=== PATIENT | female | born 1995 | race Caucasian/White ===

== ENCOUNTER 2019-08-01 15:51 | Emergency (ER) | payer MEDICAID ==
--- NOTE | 2019-08-01 16:17 | ER Document Report ---
ED Medical Screen (RME) - General Chief Complaint: High Blood Pressure Stated Complaint: HIGH BLOOD PRESSURE/14 WEEKS Time Seen by Provider: 08/01/19 16:09 Mode of Arrival: Ambulatory Information source: Patient Notes: 23-year-old female presented to ED for complaint of elevated blood pressure at the primary care doctor's office. She states they told her her blood pressure was 130/90 and since she is 14 weeks she needs to come right to the emergency room. Her blood pressure in the emergency room was 117/81. She is 3 para 1 with blood type of O+. She states she has had a lot of swelling to her hands and feet times a month and spots in front of her eyes times a week. She states she did have preeclampsia with her first child as well as gestational diabetes. She states she did have a miscarriage in April. She does smoke 3 cigarettes a day does not drink or do any illicit drugs. Patient is alert oriented respirations regular and unlabored speaking in full sentences. Patient states she is having no discomfort at this time. She is very concerned about the swelling to the hands and feet and that they told her she had protein and ketones in her urine at the doctor's office so her she and her decided they would go come right over to the emergency room now. I have greeted and performed a rapid initial assessment of this patient. A co mprehensive ED assessment and evaluation of the patient, analysis of test results and completion of medical decision making process will be conducted by an additional ED providers. - Related Data Allergies/Adverse Reactions: No Known Allergies Allergy (Unverified 08/01/19 16:04) Past Medical History - Social History Frequency of alcohol use: None Drug Abuse: None Physical Exam - Vital signs Vitals: Temp Pulse Resp BP Pulse Ox 98.4 F 96 18 117/81 100 08/01/19 16:04 08/01/19 16:04 08/01/19 16:04 08/01/19 16:04 08/01/19 16:04 Course - Vital Signs Vital signs: Temp Pulse Resp BP Pulse Ox 98.4 F 96 18 117/81 100 08/01/19 16:04 08/01/19 16:04 08/01/19 16:04 08/01/19 16:04 08/01/19 16:04
[2019-08-01 17:11] LABS: ABSOLUTE MONOCYTES (AUTO) 0.9 10^3/uL (0.1-1.4); ABSOLUTE NEUT (AUTO) 9.4 10^3/uL (1.7-8.2); BASOPHILS % (AUTO) 0.1 % (0-2); EOSINOPHILS % (AUTO) 0.3 % (0-6); HEMATOCRIT 38.6 % (36.0-47.0); HEMOGLOBIN 12.9 g/dL (12.0-15.5); LYMPHOCYTES % (AUTO) 22.5 % (13-45); MEAN CORPUSCULAR HGB CONC 33.3 g/dL (32.0-36.0); MEAN CORPUSCULAR VOLUME 84 fl (80-97); PLATELET COUNT 342 10^3/uL (150-450); RED CELL DISTRIBUTION WIDTH 13.7 % (11.5-14.0); SEGMENTED NEUTROPHILS % (AUTO) 70.1 % (42-78); TOTAL CELLS COUNTED % (AUTO) 100 %; WHITE BLOOD COUNT 13.4 10^3/uL (4.0-10.5)
[2019-08-01 17:24] LABS: ALBUMIN 4.6 g/dL (3.5-5.0); ALKALINE PHOSPHATASE 63 U/L (38-126); ANION GAP 11 (5-19); ASPARTATE AMINO TRANSFERASE 20 U/L (14-36); BILIRUBIN,TOTAL 0.5 mg/dL (0.2-1.3); BLOOD UREA NITROGEN 5 mg/dL (7-20); CALCIUM 9.6 mg/dL (8.4-10.2); CARBON DIOXIDE 23 mmol/L (22-30); CHLORIDE 103 mmol/L (98-107); GLUCOSE 90 mg/dL (75-110); TOTAL PROTEIN 8.2 g/dL (6.3-8.2)
[2019-08-01 17:53] LABS: APPEARANCE,URINE CLOUDY; BILIRUBIN,URINE NEGATIVE (NEGATIVE); COLOR,URINE YELLOW; GLUCOSE, URINE NEGATIVE (NEGATIVE); KETONES,URINE 80 mg/dL (NEGATIVE); LEUKOCYTE ESTERASE,URINE LARGE (NEGATIVE); NITRITE,URINE NEGATIVE (NEGATIVE); PROTEIN,URINE NEGATIVE (NEGATIVE); URINE SPECIFIC GRAVITY 1.014; UROBILINOGEN,URINE NEGATIVE mg/dL (<2.0)
--- NOTE | 2019-08-01 19:28 | ER Document Report ---
ED General - General Chief Complaint: High Blood Pressure Stated Complaint: HIGH BLOOD PRESSURE/14 WEEKS Time Seen by Provider: 08/01/19 16:09 Mode of Arrival: Ambulatory Notes: 23-year-old female presents emergency department stating that she is about 14 weeks and she thinks she has preeclampsia. Patient states that her last menstrual period was 04/24/2019. She did have an incomplete miscarriage in March and passed the last products of conception on April 15. States she did not get her first positive test until June 04, 2019. She is a G3, who states that for the past several days she has been having swelling in her legs and now she has been having some flashing lights and feeling like she may pass out. Patient states that she was seen in a clinic today (she does not know its name) and when they saw that she had cloudy urine and a UTI they told her that her blood pressure was also elevated and this meant she had preeclampsia and that they saw a protein in her urine so they told her to come to the emergency department immediately as they did not feel comfortable treating preeclampsia. Denies abdominal pain or vaginal bleeding. Denies care or dating ultrasound. - Related Data Allergies/Adverse Reactions: No Known Allergies Allergy (Unverified 08/01/19 16:04) Past Medical History - General Information source: Patient - Social History Smoking Status: Current Every Day Smoker Frequency of alcohol use: None Drug Abuse: None Family History: Reviewed & Not Pertinent Patient has homicidal ideation: No Review of Systems - Review of Systems Constitutional: No symptoms reported EENT: See HPI - Headache, flashing lights in the eyes. Cardiovascular: See HPI, Edema. denies: Chest pain, Orthopnea, Dyspnea Respiratory: No symptoms reported Gastrointestinal: No symptoms reported Neurological/Psychological: See HPI - Flashing lights in her eyes. -: Yes All other systems reviewed and negative Physical Exam - Vital signs Vitals: Temp Pulse Resp BP Pulse Ox 98.4 F 96 18 117/81 100 08/01/19 16:04 08/01/19 16:04 08/01/19 16:04 08/01/19 16:04 08/01/19 16:04 Interpretation: Normal - Notes Notes: GENERAL: Alert, interacts well. No acute distress. HEAD: Normocephalic, atraumatic EYES: Pupils equal, round and reactive to light, extraocular movements intact. ENT: Oral mucosa moist, tongue midline. NECK: Full range of motion, supple, trachea midline. LUNGS: Clear to auscultation bilaterally, no wheezes, rales or rhonchi, no respiratory distress. HEART: Regular rate and rhythm, no murmurs, gallops, rubs. ABDOMEN: Soft, nontender, nondistended, bowel sounds present in all 4 quadrants. EXTREMITIES: Moves all 4 extremities spontaneously, trace pitting edema at the level of the ankle, radial and dorsalis pedis pulses 2/4 bilaterally. No cyanosis. NEUROLOGICAL: Alert and oriented x3, normal speech, cranial nerves II through XII grossly intact, biceps and patellar DTRs 2+ bilaterally. PSYCH: Normal mood, normal affect. SKIN: Warm, Dry, normal turgor, no rashes or lesions noted. Course - Re-evaluation Re-evalutation: 08/01/19 19:36 CBC shows leukocytosis at 13.4, CMP grossly unremarkable, quantitative beta-hCG is 78,141, urinalysis shows 80 ketones, moderate blood, large leukocyte Estrace, no protein. Patient has UTI, she does not meet any of the criteria for preeclampsia at this time. We will do a dating ultrasound on this patient. She is not hypertensive. I will discuss with [facility] after the dating ultrasound comes back whether or not they would like her started on daily aspirin to prevent development of preeclampsia. Patient's UTI will be treated with nitrofurantoin. 08/01/19 20:39 Patient is 12 weeks, 3 days EGA on US. Discussed with Dr. Bassett [facility] on-call who agrees with starting 81 mg of baby aspirin daily for prevention of preeclampsia. Patient does not need any antihypertensives at this time. Patient will be discharged to home. Asked to follow-up with health department or other [facility] as an outpatient. - Vital Signs Vital signs: Temp Pulse Resp BP Pulse Ox 98.4 F 96 18 117/81 100 08/01/19 16:04 08/01/19 16:04 08/01/19 16:04 08/01/19 16:04 08/01/19 16:04 - Laboratory Result Diagrams: 08/01/19 16:40 08/01/19 16:40 Laboratory results interpreted by me: 08/01/19 08/01/19 08/01/19 16:40 16:40 16:40 WBC 13.4 H Absolute Neuts (auto) 9.4 H Sodium 136.6 L BUN 5 L Creatinine 0.38 L Beta HCG, Quant 04362.00 H Urine Ketones 80 H Urine Blood MODERATE H Ur Leukocyte Esterase LARGE H Discharge - Discharge Clinical Impression: First trimester , UTI (urinary tract infection) in in first trimester UTI (urinary tract infection) Qualifiers: Urinary tract infection type: acute cystitis Hematuria presence: with hematuria Qualified Code(s): N30.01 - Acute cystitis with hematuria Condition: Stable Disposition: HOME, SELF-CARE Additional Instructions: Please take the nitrofurantoin as directed until it is gone. This will treat UTI. Please take a daily baby aspirin, 81 mg of aspirin once a day until the end of your or into your [facility] tells you to stop taking it. Please return to the emergency department for fevers, vaginal bleeding, ab dominal pain or any new or concerning symptoms. Please follow[place] either [place] [facility] [place], [facility] or the health department. Prescriptions: Nitrofurantoin Monohyd/M-Cryst [Macrobid 100 mg Capsule] 100 mg PO BID #14 cap
--- NOTE | 2019-08-01 20:20 | RADIOLOGY REPORT (SQ) ---
EXAM DESCRIPTION: US LESS THAN 14 WEEKS COMPLETED DATE/TME: 08/01/2019 19:02 CLINICAL HISTORY: 23 years, Female, , dates uncertain, swelling, ?Pre-E EXAM DESCRIPTION: CLINICAL HISTORY: , dates uncertain, swelling, ?Pre-E COMPARISON: None. FINDINGS: [Transabdominal ] [ ] images of the pelvis were submitted. There is a single live IUP with heart rate of 160 bpm. EGA 12 weeks three days, ultrasound [facility]THA 02/10/2020. Uterus measures 10.9 x 7.6 x 9.0 cm. Cervix length 2.8 cm. Irregularity of a portion of the myometrium is nonspecific but suggests contraction throughout the exam No other significant abnormality is seen. IMPRESSION: Single live IUP as above. Nonspecific myometrial irregularity may be a continuous contraction throughout the exam.
[2019-08-01 20:49] VITALS: BP 120/63
== END 2019-08-01 20:49 | disposition home or self-care (01) ==
LOC: ER 15:51
DX: O23.42 Unspecified infection of urinary tract in pregnancy, second trimester (principal); O20.9 Hemorrhage in early pregnancy, unspecified; M79.89 Other specified soft tissue disorders; O99.332 Smoking (tobacco) complicating pregnancy, second trimester; F17.210 Nicotine dependence, cigarettes, uncomplicated; Z3A.14 14 weeks gestation of pregnancy
CPT/HCPCS: 36415; 76801; 80053; 81001; 84702; 85025; 87086; 99284